=== PATIENT | male | born 1985 | race Native Hawaiian/Other Pacific Islander ===

== ENCOUNTER 2018-10-29 14:34 | Emergency (ER) | payer OTHER ==
[2018-10-29 14:42] VITALS: BP 128/81; PULSE 54; RESP 18; TEMP 97.9
--- NOTE | 2018-10-29 15:52 | ED ---
Upper Extremity HPI - General Chief Complaint: Extremity Injury, Upper Stated Complaint: rt arm tenderness Time Seen by Provider: 10/29/18 15:29 Source: patient Mode of arrival: ambulatory Limitations: no limitations - History of Present Illness Initial Comments: Patient is a 33-year-old male presenting to the emergency Department with complaints of right hand pain since this morning. Patient denies any trauma or injuries to the right hand. Patient states he woke up and had a hard time moving his right wrist and has been having pain radiating into his right hand. Patient does have history of carpal tunnel and had the lunate bone removed due to previous injury. Patient states yesterday he was working and was fine. Patient states he has some swelling of the area. Patient has no alleviating factors. Patient has no other complaints at this time. Upon arrival to ER, vital signs stable. - Related Data Allergies Allergy/AdvReac Type Severity Reaction Status Date / Time No Known Allergies Allergy Verified 10/29/18 14:40 Review of Systems ROS Statement: Those systems with pertinent positive or pertinent negative responses have been documented in the HPI. ROS Other: All systems not noted in ROS Statement are negative. Past Medical History Past Medical History: No Reported History History of Any Multi-Drug Resistant Organisms: None Reported Additional Past Surgical History / Comment(s): left knee, right hand Past Psychological History: No Psychological Hx Reported Smoking Status: Current every day smoker Past Alcohol Use History: None Reported Past Drug Use History: None Reported General Exam - General Exam Comments Initial Comments: GENERAL: Well-appearing, well-nourished and in no acute distress. HEAD: Atraumatic, normocephalic. EYES: Pupils equal round and reactive to light, extraocular movements intact, sclera anicteric, conjunctiva are normal. ENT: TMs normal, nares patent, oropharynx clear without exudates. Moist mucous membranes. NECK: Normal range of motion, supple without lymphadenopathy or JVD. LUNGS: Breath sounds clear to auscultation bilaterally and equal. No wheezes rales or rhonchi. HEART: Regular rate and rhythm without murmurs, rubs or gallops. ABDOMEN: Soft, nontender, normoactive bowel sounds. No guarding, no rebound. No masses appreciated. : Deferred EXTREMITIES: Pain with palpation of the right lateral wrist, base of the thumb. Patient has decreased range of motion of the right wrist. Patient has full range of motion of the right fingers. No pain in the right forearm or elbow. Neurovascular intact. NEUROLOGICAL: Cranial nerves II through XII grossly intact. Normal speech, normal gait. PSYCH: Normal mood, normal affect. SKIN: Warm, Dry, normal turgor, no rashes or lesions noted. Limitations: no limitations Course Vital Signs 10/29/18 14:39 Temperature 97.9 F Pulse Rate 54 L Respiratory 18 Rate Blood Pressure 128/81 O2 Sat by Pulse 100 Oximetry Medical Decision Making - Medical Decision Making Patient is a 33-year-old male presenting with right hand pain since this morning. Patient has history of carpal tunnel. Patient denies any injuries or trauma to his right hand. On exam patient has tenderness to the right medial wrist and base of the thumb. Patient has normal range of motion. X-rays reveal no acute fractures/dislocations. There is discussed with patient to use his brace at night time, try heat or ice, and use Tylenol or Motrin for pain relief. The symptoms persist please follow-up with PCP. Patient is stable for discharge at this time and he is in agreement with this plan of care. Return parameters were discussed with the patient he verbalizes understanding. Case discussed with Dr. Welch. Disposition Clinical Impression: Right hand pain Disposition: HOME SELF-CARE Condition: Stable Instructions (If sedation given, give patient instructions): Arthralgia (ED) Additional Instructions: Please return to the Emergency Department if symptoms worsen or any other concerns. Use ice, heat, Motrin, Tylenol, brace at night for relief. If symptoms persist one to 2 weeks, follow up with PCP. Is patient prescribed a controlled substance at d/c from ED?: No Referrals: Josias Hickman MD [Primary Care Provider] - 1-2 days
--- NOTE | 2018-10-29 16:07 | XR ---
EXAMINATION TYPE: XR hand complete RT DATE OF EXAM: 10/29/2018 CLINICAL HISTORY: Right hand pain and limited range of motion, history of prior lunate surgery TECHNIQUE: Frontal, lateral and oblique images of the right hand are obtained. COMPARISON: None. FINDINGS: There is no acute fracture/dislocation evident in the right hand. There is prior resection of scaphoid and lunate bones. Triquetrum and residual pisiform remain present. Distal carpal row poly ntained. Overlying soft tissue is unremarkable. IMPRESSION: There is no acute fracture or dislocation in the right hand.
== END 2018-10-29 16:20 | disposition home or self-care (01) ==
LOC: EC 14:34
DX: M79.641 Pain in right hand (principal); F17.200 Nicotine dependence, unspecified, uncomplicated
CPT/HCPCS: 99283